=== PATIENT | male | born 1985 | race Caucasian/White ===

== ENCOUNTER 2016-07-27 02:29 | Emergency (ER) | payer OTHER, SELFPAY ==
[2016-07-27] MEDS ORDERED: Phenergan 25 MG INJ IV ONE (02:46)
[2016-07-27] MEDS ORDERED: Hydromorphone 1 mg/ml Ampule IV ONE (02:46)
[2016-07-27] MEDS ORDERED: Sodium Chloride 0.9% 1000 ML 1,000 ML IV STA ×2 (02:46→03:41)
--- NOTE | 2016-07-27 02:52 | ERPHSYRPT ---
- History of Present Illness Time Seen by Provider: 07/27/16 02:40 Historian: patient Exam Limitations: no limitations Patient Subjective Stated Complaint: "i have been vomiting andhaving diarrhea non-stop since 9 pm" Triage Nursing Assessment: aox3, breathign unlabored, skin pale warm dry, steady gait Physician History: ABOUT 5.5 HOURS AGO AFTER EATING A [employer] DINNER AT HOME PT STARTED WITH VOMITING, DIARRHEA AND GENERALIZED ACHES. RASH, DYSURIA, FEVER ALL DENIED. Allergies/Adverse Reactions: venom-honey bee [bee venom (honey bee)] Allergy (Severe, Verified 03/31/16 19:22 ) Swelling Home Medications: Citalopram Hydrobromide 20 mg* [ceLEXa 20 MG] 40 mg PO DAILY 12/21/15 [ History] Quetiapine Fumarate [Seroquel] 50 mg PO HS 03/28/16 [History] Antiinflammatory 03/31/16 [History] Hx Tetanus, Diphtheria Vaccination/Date Given: No Hx Influenza Vaccination/Date Given: No Hx Pneumococcal Vaccination/Date Given: No - Review of Systems Constitutional: No Fever Abdominal/Gastrointestinal: Vomiting, Diarrhea Musculoskeletal: Myalgias All Other Systems: Reviewed and Negative - Past Medical History Pertinent Past Medical History: Yes Neurological History: No Pertinent History ENT History: No Pertinent History Cardiac History: No Pertinent History Respiratory History: Asthma Endocrine Medical History: No Pertinent History Musculoskeletal History: No Pertinent History GI Medical History: Hernia History: No Pertinent History Psycho-Social History: Depression, Panic Disorder Male Reproductive Disorders: No Pertinent History Other Medical History: anger managment - Past Surgical History Past Surgical History: Yes Neuro Surgical History: No Pertinent History Cardiac: No Pertinent History Respiratory: No Pertinent History Gastrointestinal: Hernia Repair Genitourinary: No Pertinent History Musculoskeletal: No Pertinent History Male Surgical History: No Pertinent History Other Surgical History: T&A as a child - Social History Smoking Status: Former smoker How long have you smoked: 13 Exposure to second hand smoke: Yes Drug Use: none Patient Lives Alone: No Significant Family History: no pertinent family hx - Nursing Vital Signs Nursing Vital Signs: Initial Vital Signs Temperature 97.6 F Temperature Source Oral Pulse Rate 110 Respiratory Rate 22 Blood Pressure [Right Arm] 154/36 Pain Intensity 10 - Physical Exam General Appearance: alert, anxiety Eye Exam: PERRL/EOMI Ears, Nose, Throat Exam: TMs normal, moist mucous membranes, pharyngeal erythema Neck Exam: normal inspection Respiratory Exam: lungs clear Cardiovascular Exam: normal heart sounds Gastrointestinal/Abdomen Exam: soft, other (B.S. MODERATELY HYPERACTIVE AND NORMOTONIC) Back Exam: normal range of motion Extremity Exam: normal inspection, No pedal edema Neurologic Exam: alert, cooperative Skin Exam: warm, dry SpO2 Interpretation: normal SpO2: 99 Oxygen Delivery: Room Air - Course Nursing assessment & vital signs reviewed: Yes Ordered Tests: Active Orders 24 hr Category Date Time Status IV Insertion STAT Care 07/27/16 02:46 Active AMYLASE Stat Lab 07/27/16 02:55 Completed CBC W DIFF Stat Lab 07/27/16 02:55 Completed CMP Stat Lab 07/27/16 02:55 Completed LIPASE Stat Lab 07/27/16 02:55 Completed MAG [MAGNESIUM] Stat Lab 07/27/16 02:55 Completed UA W/ MICROSCOPIC Stat Lab 07/27/16 03:16 Completed Urine Triage Profile Stat Lab 07/27/16 03:16 Completed Medication Summary Generic Name Dose Route Start Last Admin Trade Name Freq PRN Reason Stop Dose Admin Sodium Chloride 1,000 mls @ 999 mls/hr 07/27/16 02:46 07/27/16 03:04 Sodium Chloride 0.9% 1000 Ml IV 07/27/16 03:46 999 mls/hr .Q1H1M STA Administration Magnesium Sulfate/Dextrose 100 mls @ 200 mls/hr 07/27/16 03:41 Magnesium 1 Gm / 100 Ml D5w IV 07/27/16 04:10 STAT ONE Sodium Chloride 1,000 mls @ 999 mls/hr 07/27/16 03:41 Sodium Chloride 0.9% 1000 Ml IV 07/27/16 04:41 .Q1H1M STA Discontinued Medications Generic Name Dose Route Start Last Admin Trade Name Freq PRN Reason Stop Dose Admin Hydromorphone HCl 1 mg 07/27/16 02:46 07/27/16 03:04 Hydromorphone 1 Mg/Ml Ampule IV 07/27/16 02:47 1 mg STAT ONE Administration Hydromorphone HCl Confirm 07/27/16 02:53 Hydromorphone 1 Mg/Ml Ampule Administered 07/27/16 02:54 Dose 1 mg .ROUTE .STK-MED ONE Hydromorphone HCl Confirm 07/27/16 03:01 Hydromorphone 1 Mg/Ml Ampule Administered 07/27/16 03:02 Dose 1 mg .ROUTE .STK-MED ONE Sodium Chloride Confirm 07/27/16 02:54 Sodium Chloride 0.9% 1000 Ml Administered 07/27/16 02:55 Dose 1,000 mls @ ud .ROUTE .STK-MED ONE Promethazine HCl 12.5 mg 07/27/16 02:46 07/27/16 03:04 Phenergan 25 Mg Inj IV 07/27/16 02:47 12.5 mg STAT ONE Administration Promethazine HCl Confirm 07/27/16 02:53 Phenergan 25 Mg Inj Administered 07/27/16 02:54 Dose 25 mg .ROUTE .STK-MED ONE Lab/Rad Data: Laboratory Result Diagrams 07/27/16 02:55 07/27/16 02:55 Laboratory Results 07/27/16 07/27/16 07/27/16 Range/Units 03:16 03:16 02:55 WBC (4.0-10.5) K/mm3 RBC (4.1-5.6) M/mm3 Hgb (12.5-18.0) gm/dl Hct (42-50) % MCV (78-100) fl MCH (26-32) pg MCHC (32-36) g/dl RDW (11.5-14.0) % Plt Count (150-450) K/mm3 MPV (6-9.5) fl Gran % (36.0-66.0) % Lymphocytes % (24.0-44.0) % Monocytes % (0.0-12.0) % Eosinophils % (0.00-5.0) % Basophils % (0.0-0.4) % Basophils # (0-0.4) Sodium (136-145) mEq/L Potassium (3.5-5.1) mEq/L Chloride (98-107) mEq/L Carbon Dioxide (21-32) mEq/L Anion Gap (5-15) MEQ/L BUN (9-20) mg/dL Creatinine (0.55-1.30) mg/dl Estimated GFR ML/MIN Glucose (70-110) MG/DL Calcium (8.5-10.1) mg/dL Magnesium 1.3 L (1.8-2.4) mg/dL Total Bilirubin (0.2-1.0) mg/dL AST (15-37) U/L ALT (12-78) U/L Alkaline Phosphatase (46-116) U/L Serum Total Protein (6.4-8.2) gm/dL Albumin (3.4-5.0) g/dL Amylase (25-115) U/L Lipase (73-393) U/L Ur Collection Type CLEAN CATCH Urine Color DARK YELLOW (YELLOW) Urine Appearance CLEAR (CLEAR) Urine pH 6.0 (5-6) Ur Specific [place] 1.020 (1.005-1.025) Urine Protein 30 (Negative) Urine Glucose (UA) 100 (NEGATIVE) mg/dL Urine Ketones TRACE (NEGATIVE) Urine Nitrite NEGATIVE (NEGATIVE) Urine Bilirubin SMALL (NEGATIVE) Urine Urobilinogen 0.2 (0-1) mg/dL Urine WBC (Auto) NEGATIVE (NEGATIVE) Urine RBC (Auto) NEGATIVE (0-5) Eric/ul Urine Microscopic WBC 0-2 (0-5) /HPF Ur Epithelial Cells FEW (FEW) /HPF Urine Bacteria FEW (NEGATIVE) /HPF Urine Mucus SLIGHT (NEGATIVE) /HPF Urine Opiates Level POS. (NEGATIVE) Ur Methadone NEG. (NEGATIVE) Urine Barbiturates NEG. (NEGATIVE) Ur Phencyclidine (PCP) NEG. (NEGATIVE) Urine Amphetamine NEG. (NEGATIVE) U Benzodiazepine Level POS. (NEGATIVE) Urine Cocaine NEG. (NEGATIVE) Urine Marijuana (THC) POS. (NEGATIVE) Specimen Received [id number] 07/27/16 07/27/16 Range/Units 02:55 02:55 WBC 13.3 H (4.0-10.5) K/mm3 RBC 5.51 (4.1-5.6) M/mm3 Hgb 16.5 (12.5-18.0) gm/dl Hct 47.9 (42-50) % MCV 86.9 (78-100) fl MCH 29.9 (26-32) pg MCHC 34.4 (32-36) g/dl RDW 14.4 H (11.5-14.0) % Plt Count 279 (150-450) K/mm3 MPV 10.1 H (6-9.5) fl Gran % 85.0 H (36.0-66.0) % Lymphocytes % 5.9 L (24.0-44.0) % Monocytes % 7.6 (0.0-12.0) % Eosinophils % 1.3 (0.00-5.0) % Basophils % 0.2 (0.0-0.4) % Basophils # 0.02 (0-0.4) Sodium 143 (136-145) mEq/L Potassium 5.1 (3.5-5.1) mEq/L Chloride 103 (98-107) mEq/L Carbon Dioxide 25.8 (21-32) mEq/L Anion Gap 18.8 H (5-15) MEQ/L BUN 17 (9-20) mg/dL Creatinine 1.54 H (0.55-1.30) mg/dl Estimated GFR 57 ML/MIN Glucose 155 H (70-110) MG/DL Calcium 9.8 (8.5-10.1) mg/dL Magnesium (1.8-2.4) mg/dL Total Bilirubin 0.5 (0.2-1.0) mg/dL AST 69 H (15-37) U/L ALT 82 H (12-78) U/L Alkaline Phosphatase 104 (46-116) U/L Serum Total Protein 8.6 H (6.4-8.2) gm/dL Albumin 4.9 (3.4-5.0) g/dL Amylase 41 (25-115) U/L Lipase 72 L (73-393) U/L Ur Collection Type Urine Color (YELLOW) Urine Appearance (CLEAR) Urine pH (5-6) Ur Specific [place] (1.005-1.025) Urine Protein (Negative) Urine Glucose (UA) (NEGATIVE) mg/dL Urine Ketones (NEGATIVE) Urine Nitrite (NEGATIVE) Urine Bilirubin (NEGATIVE) Urine Urobilinogen (0-1) mg/dL Urine WBC (Auto) (NEGATIVE) Urine RBC (Auto) (0-5) Eric/ul Urine Microscopic WBC (0-5) /HPF Ur Epithelial Cells (FEW) /HPF Urine Bacteria (NEGATIVE) /HPF Urine Mucus (NEGATIVE) /HPF Urine Opiates Level (NEGATIVE) Ur Methadone (NEGATIVE) Urine Barbiturates (NEGATIVE) Ur Phencyclidine (PCP) (NEGATIVE) Urine Amphetamine (NEGATIVE) U Benzodiazepine Level (NEGATIVE) Urine Cocaine (NEGATIVE) Urine Marijuana (THC) (NEGATIVE) Specimen Received - Departure Time of Disposition: 03:47 Departure Disposition: Home Clinical Impression: VOMITING, DIARRHEA, HYPOMAGNESEMIA Condition: Fair Critical Care Time: No Instructions: Diarrhea and Traveler's Diarrhea -- Adult, Vomiting -- Adult Additional Instructions: FOLLOW UP WITH PRIVATE DOCTOR TOMORROW. Prescriptions: Ondansetron [Zofran Odt] 4 mg PO Q4H PRN PRN #14 tab.rapdis PRN Reason: Nausea/Vomiting
[2016-07-27] MEDS ORDERED: Phenergan 25 MG INJ ONE (02:53)
[2016-07-27] MEDS ORDERED: Hydromorphone 1 mg/ml Ampule ONE ×2 (02:53→03:01)
[2016-07-27] MEDS ORDERED: Sodium Chloride 0.9% 1000 ML 1,000 ML ONE ×2 (02:54→03:48)
[2016-07-27 02:58] LABS: BASOPHIL % 0.2 % (0.0-0.4); Eosinophil % 1.3 % (0.00-5.0); Lymphocytes % 5.9 % (24.0-44.0); Mean Cell Volume 86.9 fl (78-100); Mean Corpuscular Hemoglobin 29.9 pg (26-32); Mean Platelet Volume 10.1 fl (6-9.5); Monocytes % 7.6 % (0.0-12.0); Platelet Count 279 K/mm3 (150-450); Red Blood Count 5.51 M/mm3 (4.1-5.6); Red Cell Distribution Width 14.4 % (11.5-14.0); White Blood Count 13.3 K/mm3 (4.0-10.5)
[2016-07-27 03:19] LABS: ALBUMIN 4.9 g/dL (3.4-5.0); ANION GAP 18.8 MEQ/L (5-15); BILIRUBIN,TOTAL 0.5 mg/dL (0.2-1.0); Carbon Dioxide 25.8 mEq/L (21-32); Potassium 5.1 mEq/L (3.5-5.1); Total Protein 8.6 gm/dL (6.4-8.2)
[2016-07-27 03:27] LABS: COMPLETE URINE MICROSCOPIC? YES; Collection Type CLEAN CATCH; Mucus SLIGHT /HPF (NEGATIVE)
[2016-07-27 03:28] LABS: Bacteria FEW /HPF (NEGATIVE); Epithelial Cells FEW /HPF (FEW); WBC 0-2 /HPF (0-5)
[2016-07-27] MEDS ORDERED: Magnesium 1 Gm / 100 Ml D5W*** 100 ML IV ONE ×2 (03:41→03:48)
[2016-07-27 04:45] VITALS: BP 146/91; PULSE 85; O2SAT 100
== END 2016-07-27 04:47 | disposition home or self-care (01) ==
LOC: ED 02:29
DX: R11.10 Vomiting, unspecified (principal); R19.7 Diarrhea, unspecified; E83.42 Hypomagnesemia; M79.1 Myalgia
CPT/HCPCS: 36000; 36415; 80053; 80307; 81000; 82150; 83690; 83735; 85025; 96360; 96361; 96365; 96374; 96375; 99284; J1170; J2550; J3475

== ENCOUNTER 2016-10-12 16:18 | Emergency (ER) | payer OTHER, SELFPAY ==
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
[2016-10-12] MEDS ORDERED: Adacel Vial IM ONE ×2 (17:10→17:16)
[2016-10-12] MEDS ORDERED: TORAdol 30 mg Injection IM ONE (17:11)
[2016-10-12 17:15] VITALS: BP 142/81; PULSE 80
[2016-10-12] MEDS ORDERED: TORAdol 30 mg Injection ONE (17:16)
[2016-10-12] MEDS ORDERED: BACIGUENT PACKET ONE (17:29)
[2016-10-12 17:30] VITALS: O2SAT 100
== END 2016-10-12 17:36 | disposition home or self-care (01) ==
LOC: ED 16:18
DX: T24.201A Burn of second degree of unspecified site of right lower limb, except ankle and foot, initial encounter (principal); X16.XXXA Contact with hot heating appliances, radiators and pipes, initial encounter
CPT/HCPCS: 90471; 90715; 96372; 99283; J1885; A9270-GY

== ENCOUNTER 2017-06-11 11:52 | Emergency (ER) | payer OTHER, SELFPAY ==
[2017-06-11] MEDS ORDERED: TORAdol 30 mg Injection IM ONE (12:14)
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
[2017-06-11] MEDS ORDERED: TORAdol 30 mg Injection ONE (12:34)
[2017-06-11] MEDS ORDERED: XYLOCAINE 1% HCL 20 ML MDV IJ ONE (12:48)
[2017-06-11] MEDS ORDERED: XYLOCAINE 1% HCL 20 ML MDV ONE (12:57)
[2017-06-11 13:52] VITALS: BP 128/98; PULSE 88; O2SAT 100
--- NOTE | 2017-06-11 18:46 | XRAY ---
Indication: Post reduction. Comparison: Taken earlier in the day. 3 views of the right hand demonstrate successful reduction of the fourth PIP dislocation with residual soft tissue swelling. No other bony, articular or soft tissue abnormalities.
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
== END 2017-06-11 14:02 | disposition home or self-care (01) ==
LOC: ED 11:52
PROC: 0RSWXZZ Reposition Right Finger Phalangeal Joint, External Approach (ICD-10-PCS; principal; 2017-06-11)
DX: S63.284A Dislocation of proximal interphalangeal joint of right ring finger, initial encounter (principal); W23.0XXA Caught, crushed, jammed, or pinched between moving objects, initial encounter
CPT/HCPCS: 26770; 73130; 96372; 99284; J1885

== ENCOUNTER 2019-05-28 12:43 | Emergency (ER) | payer MEDICAID, OTHER ==
--- NOTE | 2019-05-28 12:59 | ERPHSYRPT ---
- History of Present Illness Time Seen by Provider: 05/28/19 12:59 Historian: patient Exam Limitations: no limitations Physician History: 33 y/o white male pt presents with bilat groin pain and medication refill. pt underwent bilat ing hernia repair with mesh in 2016 per patient report. he is concerned about mesh moving and pain it is causing. pt is out of his meds including seroquel and norco. dr. rodriguez is his primary doctor. Timing/Duration: other (chronic) Activities at Onset: none Quality: sharpness (bilat groins) Pain Radiation: groin (bilat) Severity of Pain-Max: mild Severity of Pain-Current: mild Modifying Factors: Improves With: movement (worsens) Associated Symptoms: denies symptoms Previous symptoms: same symptoms as today Allergies/Adverse Reactions: venom-honey bee [bee venom (honey bee)] Allergy (Severe, Verified 05/28/19 13:06 ) Swelling Home Medications: No Reportable Medications [No Reported Medications] 05/28/19 [History] Hx Tetanus, Diphtheria Vaccination/Date Given: No Hx Influenza Vaccination/Date Given: No Hx Pneumococcal Vaccination/Date Given: No - Review of Systems Constitutional: No Symptoms Eyes: No Symptoms Ears, Nose, & Throat: No Symptoms Respiratory: No Symptoms Cardiac: No Symptoms Abdominal/Gastrointestinal: No Symptoms Genitourinary Symptoms: Other (bilat groin pain) Musculoskeletal: No Symptoms Skin: No Symptoms Neurological: No Symptoms Psychological: No Symptoms Endocrine: No Symptoms Hematologic/Lymphatic: No Symptoms Immunological/Allergic: No Symptoms All Other Systems: Reviewed and Negative - Past Medical History Pertinent Past Medical History: Yes Neurological History: No Pertinent History ENT History: No Pertinent History Cardiac History: No Pertinent History Respiratory History: Asthma Endocrine Medical History: No Pertinent History Musculoskeletal History: No Pertinent History GI Medical History: Hernia History: No Pertinent History Psycho-Social History: Depression, Panic Disorder Male Reproductive Disorders: No Pertinent History Other Medical History: anger managment - Past Surgical History Past Surgical History: Yes Neuro Surgical History: No Pertinent History Cardiac: No Pertinent History Respiratory: No Pertinent History Gastrointestinal: Hernia Repair Genitourinary: No Pertinent History Musculoskeletal: No Pertinent History Male Surgical History: No Pertinent History Other Surgical History: T&A as a child - Social History Smoking Status: Former smoker How long have you smoked: 13 Exposure to second hand smoke: Yes Drug Use: none Patient Lives Alone: No Significant Family History: no pertinent family hx - Nursing Vital Signs Nursing Vital Signs: Initial Vital Signs Temperature 97.2 F 05/28/19 12:55 Pulse Rate 95 H 05/28/19 12:55 Respiratory Rate 16 05/28/19 12:55 Blood Pressure 129/79 05/28/19 12:55 O2 Sat by Pulse Oximetry 100 05/28/19 12:55 Pain Scale Pain Intensity 9 - Physical Exam General Appearance: no apparent distress, alert, anxiety Eye Exam: PERRL/EOMI, eyes nml inspection Ears, Nose, Throat Exam: normal ENT inspection, moist mucous membranes Neck Exam: normal inspection, non-tender, supple, full range of motion Respiratory Exam: No chest tenderness Gastrointestinal/Abdomen Exam: soft, tenderness (bilat groin; no evidence of infection and no evidence of recurrent ing hernias) Male Genitalia Exam: normal genitalia, No hernia Rectal Exam: not done Neurologic Exam: alert, oriented x 3, cooperative, trouble clerk II-XII nml as tested, normal mood/affect, nml cerebellar function, nml station & gait Skin Exam: normal color, warm, dry Lymphatic Exam: No adenopathy O2 Delivery: Room Air - Course Nursing assessment & vital signs reviewed: Yes - Progress Progress: unchanged Counseled pt/family regarding: diagnosis, need for follow-up - Departure Departure Disposition: Home Clinical Impression: Bilateral groin pain, Medication refill Condition: Stable Critical Care Time: No Referrals: DELBERT RODRIGUEZ MD [Primary Care Provider] - Additional Instructions: follow up with dr. rodriguez on 06/01/2019 at 1445 for refill of your medications. follow up with dr. odonnell, general surgeon, 06/04/2019 at 0940 [facility] for evaluation of your bilateral groin pain
[2019-05-28 13:06] VITALS: BP 129/79; PULSE 95; O2SAT 100
== END 2019-05-28 14:06 | disposition home or self-care (01) ==
LOC: ED 12:43
DX: R10.32 Left lower quadrant pain (principal); R10.31 Right lower quadrant pain
CPT/HCPCS: 99283

== ENCOUNTER 2019-10-13 20:02 | Emergency (ER) | payer MEDICAID ==
--- NOTE | 2019-10-13 21:30 | ERPHSYRPT ---
- History of Present Illness Time Seen by Provider: 10/13/19 21:27 Source: patient, family Exam Limitations: no limitations Patient Subjective Stated Complaint: pt states that he was on the roof, pt states that he fell off a one story house, pt states that he hit his nose on the ladder on the way down, pt states that he hit his rt ribs also Triage Nursing Assessment: pt ambulated into the er, pt is axo x 3, pt is bleeding from nose, pt states pain 9/10 to nose, pt c/o pain with breathing, pt has clear lung sound posterior and anterior, pupils 3 mm and PERRL, strong pulse ABEL, vitals wnl Physician History: pt fell from roof striking ladder with right ribs and nose /head with brief LOC ; Occurred: just prior to arrival Severity: moderate Head Injury Location: frontal Method of Injury: fell Loss of Consciousness: brief (seconds) Associated Symptoms: denies symptoms Allergies/Adverse Reactions: venom-honey bee [bee venom (honey bee)] Allergy (Severe, Verified 05/28/19 13:06 ) Swelling Home Medications: Citalopram Hydrobromide [Celexa] 40 mg PO DAILY 10/13/19 [History] Hydrocodone Bit/Acetaminophen [[place] 7.5-325 Tablet] 1 each PO Q6H PRN PRN 10/12 [History] Quetiapine Fumarate [Seroquel] 200 mg PO BID 10/13/19 [History] Hx Tetanus, Diphtheria Vaccination/Date Given: Yes Hx Influenza Vaccination/Date Given: Yes Hx Pneumococcal Vaccination/Date Given: No Travel Risk - International Travel Have you traveled outside of the country in past 3 weeks: No (N) If Yes, where;: N - Coronavirus Screening Are you exhibiting any of the following symptoms?: No Close contact with a COVID-19 positive Pt in past 14-21 Days: No - Past Medical History Pertinent Past Medical History: Yes Neurological History: No Pertinent History ENT History: No Pertinent History Cardiac History: No Pertinent History Respiratory History: Asthma Endocrine Medical History: No Pertinent History Musculoskeletal History: No Pertinent History GI Medical History: Hernia History: No Pertinent History Psycho-Social History: Depression, Panic Disorder Male Reproductive Disorders: No Pertinent History Other Medical History: anger managment - Past Surgical History Past Surgical History: Yes Neuro Surgical History: No Pertinent History Cardiac: No Pertinent History Respiratory: No Pertinent History Gastrointestinal: Hernia Repair Genitourinary: No Pertinent History Musculoskeletal: No Pertinent History Male Surgical History: No Pertinent History Other Surgical History: T&A as a child - Social History Smoking Status: Current every day smoker How long have you smoked: 13 Exposure to second hand smoke: Yes Drug Use: none Patient Lives Alone: No Significant Family History: no pertinent family hx - Nursing Vital Signs Nursing Vital Signs: Initial Vital Signs Temperature 97.8 F 10/13/19 20:22 Pulse Rate 109 H 10/13/19 20:22 Respiratory Rate 16 10/13/19 20:22 Blood Pressure 132/70 10/13/19 20:22 O2 Sat by Pulse Oximetry 98 10/13/19 20:22 Pain Scale Pain Intensity 9 - Physical Exam SpO2: 98 - Radiology Exams Chest X-ray Interpretation: Reviewed by me, Non-displaced Fracture (suspected right lower ribs) Ordered Tests: Active Orders 24 hr Category Date Time Status CERVICAL SPINE WO CONTRAST [CT] Stat Exams 10/13/19 21:25 Taken CHEST 2 VIEWS (PA AND LAT) Stat Exams 10/13/19 21:26 Taken HEAD WITHOUT CONTRAST [CT] Stat Exams 10/13/19 21:25 Taken CBC W DIFF Stat Lab 10/13/19 22:07 Completed CMP Stat Lab 10/13/19 22:07 Completed CULTURE,URINE Stat Lab 10/13/19 22:49 Received UA W/RFX UR CULTURE Stat Lab 10/13/19 22:49 Completed Medication Summary Discontinued Medications Generic Name Dose Route Start Last Admin Trade Name Jonaq PRN Reason Stop Dose Admin Hydrocodone Bitart/Acetaminophen 2 tab 10/13/19 22:33 10/13/19 22:44 [place] 5/325 Mg PO 10/13/19 22:34 2 tab STAT ONE Administration Hydrocodone Bitart/Acetaminophen Confirm 10/13/19 22:44 [place] 5/325 Mg Administered 10/13/19 22:45 Dose 1 tab .ROUTE .STK-MED ONE Hydrocodone Bitart/Acetaminophen Confirm 10/13/19 22:45 [place] 5/325 Mg Administered 10/13/19 22:46 Dose 1 tab .ROUTE .STK-MED ONE Lab/Rad Data: Laboratory Result Diagrams 10/13/19 22:07 10/13/19 22:07 Laboratory Results 06/10/13/19 10/13/19 Range/Units 22:49 22:07 22:07 WBC 12.0 H (4.0-10.5) K/mm3 RBC 5.32 (4.1-5.6) M/mm3 Hgb 15.8 (12.5-18.0) gm/dl Hct 46.3 (42-50) % MCV 87.0 (78-100) fl MCH 29.7 (26-32) pg MCHC 34.1 (32-36) g/dl RDW 14.2 H (11.5-14.0) % Plt Count 303 (150-450) K/mm3 MPV 10.1 (7.5-11.0) fl Gran % 74.3 H (36.0-66.0) % Eos # (Auto) 0.06 (0-0.5) Absolute Lymphs (auto) 2.02 (1.0-4.6) Absolute Monos (auto) 0.98 (0.0-1.3) Lymphocytes % 16.8 L (24.0-44.0) % Monocytes % 8.2 (0.0-12.0) % Eosinophils % 0.5 (0.00-5.0) % Basophils % 0.2 (0.0-0.4) % Absolute Granulocytes 8.94 H (1.4-6.9) Basophils # 0.02 (0-0.4) Sodium 139 (137-145) mmol/L Potassium 4.2 (3.5-5.1) mmol/L Chloride 100 (98-107) mmol/L Carbon Dioxide 30 (22-30) mmol/L Anion Gap 12.7 (5-15) MEQ/L BUN 13 (9-20) mg/dL Creatinine 1.12 (0.66-1.25) mg/dL Estimated GFR > 60.0 ML/MIN Glucose 82 (74-106) mg/dL Calcium 9.7 (8.4-10.2) mg/dL Total Bilirubin 0.60 (0.2-1.3) mg/dL AST 33 (17-59) U/L ALT 19 (0-50) U/L Alkaline Phosphatase 82 (38-126) U/L Serum Total Protein 8.2 (6.3-8.2) g/dL Albumin 4.6 (3.5-5.0) g/dL Urine Color YELLOW (YELLOW) Urine Appearance SLIGHTLY CLOUDY (CLEAR) Urine pH 5.0 (5-6) Ur Specific [place] 1.029 (1.005-1.025) Urine Protein NEGATIVE (Negative) Urine Ketones NEGATIVE (NEGATIVE) Urine Blood NEGATIVE (0-5) Eric/ul Urine Nitrite NEGATIVE (NEGATIVE) Urine Bilirubin NEGATIVE (NEGATIVE) Urine Urobilinogen NEGATIVE (0-1) mg/dL Ur Leukocyte Esterase TRACE (NEGATIVE) Urine WBC (Auto) 11-15 (0-5) /HPF Urine RBC (Auto) 3-5 (0-2) /HPF U Epithel Cells (Auto) NONE (FEW) /HPF Urine Bacteria (Auto) RARE (NEGATIVE) /HPF Unidentified Crystals 2-5 (NEGATIVE) /HPF Urine Mucus (Auto) MANY (NEGATIVE) /HPF Urine Culture Reflexed YES (NO) Urine Glucose NEGATIVE (NEGATIVE) mg/dL - Progress Progress: improved, re-examined Counseled pt/family regarding: lab results, diagnosis, need for follow-up, rad results - Departure Departure Disposition: Home Clinical Impression: righht rib nondisplaced fractures, Concussion, Nasal fracture, heamturia /uti Condition: Good Critical Care Time: No Referrals: DELBERT HOOD MD [Primary Care Provider] - Instructions: Preventing Falls, Rib Fracture (DC), Concussion, Adult (DC), Urinary Tract Infection, Adult (DC), Blood in the Urine (Hematuria), Adult (DC) , Nose Fracture (DC) Additional Instructions: followup with your DrAngelika to recheck urine and for concussion, rib fractures, and probable nasal fracture ( may need ENT referral) and return meantime if not improving or further concerns Prescriptions: Cephalexin Mh 500 mg [Keflex 500 mg] 500 mg PO TID #30 capsule
[2019-10-13 22:10] LABS: Absolute Neutrophil Ct (ANC) 8.94 (1.4-6.9); BASOPHIL % 0.2 % (0.0-0.4); Basophil (Absolute #) 0.02 (0-0.4); Eosinophil % 0.5 % (0.00-5.0); Eosinophil (Absolute #) 0.06 (0-0.5); Hematocrit 46.3 % (42-50); Hemoglobin 15.8 gm/dl (12.5-18.0); Lymphocyte (Absolute #) 2.02 (1.0-4.6); Lymphocytes % 16.8 % (24.0-44.0); Mean Corpuscular Hemoglobin 29.7 pg (26-32); Mean Corpuscular Hgb Concent. 34.1 g/dl (32-36); Mean Platelet Volume 10.1 fl (7.5-11.0); Monocyte (Absolute #) 0.98 (0.0-1.3); Monocytes % 8.2 % (0.0-12.0); Neutrophil % 74.3 % (36.0-66.0); Platelet Count 303 K/mm3 (150-450); Red Blood Count 5.32 M/mm3 (4.1-5.6); Red Cell Distribution Width 14.2 % (11.5-14.0)
[2019-10-13 22:21] LABS: ALBUMIN 4.6 g/dL (3.5-5.0); ALKALINE PHOSPHATASE 82 U/L (38-126); ANION GAP 12.7 MEQ/L (5-15); BLOOD UREA NITROGEN 13 mg/dL (9-20); CHLORIDE 100 mmol/L (98-107); Calcium 9.7 mg/dL (8.4-10.2); Carbon Dioxide 30 mmol/L (22-30); Creatinine 1 1.12 mg/dL (0.66-1.25); Glucose 82 mg/dL (74-106); Potassium 4.2 mmol/L (3.5-5.1); SGOT/AST 33 U/L (17-59); SGPT/ALT 19 U/L (0-50); SODIUM 139 mmol/L (137-145); Total Protein 8.2 g/dL (6.3-8.2)
[2019-10-13] MEDS ORDERED: NORCO 5/325 MG PO ONE (22:33)
[2019-10-13 22:39] VITALS: O2SAT 98
[2019-10-13] MEDS ORDERED: NORCO 5/325 MG ONE ×2 (22:44→22:45)
[2019-10-13 23:00] LABS: Appearance SLIGHTLY CLOUDY (CLEAR); Bacteria RARE /HPF (NEGATIVE); Bilirubin NEGATIVE (NEGATIVE); Blood NEGATIVE Ery/ul (0-5); Glucose NEGATIVE (NEGATIVE); Ketones NEGATIVE (NEGATIVE); Leukocyte Esterase TRACE (NEGATIVE); Mucus MANY /HPF (NEGATIVE); Nitrite NEGATIVE (NEGATIVE); Protein,Urine Dip NEGATIVE (Negative); Specific Gravity 1.029 (1.005-1.025); Urobilinogen NEGATIVE mg/dL (0-1)
[2019-10-13 23:41] VITALS: BP 124/72; PULSE 111
--- NOTE | 2019-10-14 06:42 | XRAY ---
Indication: Right-sided chest pain following fall from roof. Comparison: May 19, 2015. 2 view chest again hyperinflated and clear. Heart is not enlarged. Bony thorax grossly intact. Impression: Nonacute hyperinflated chest.
--- NOTE | 2019-10-14 06:44 | XRAY ---
Indication: Head injury following fall from roof. Multiple contiguous axial images obtained through the head without contrast. Comparison: None Normal appearing brain parenchyma, ventricles, and bony calvarium. Visualized paranasal sinuses and mastoid air cells are clear. Impression: Normal CT head without contrast exam. Comment: Preliminary interpretation was made by [facility]. No critical discrepancy.
--- NOTE | 2019-10-14 06:46 | XRAY ---
Indication: Neck injury following fall from roof. Multiple contiguous axial images obtained through the cervical spine. Sagittal and coronal reformatted images obtained. Comparison: None Axial images negative for acute fracture, suspicious bony lesions, or spinal canal stenosis. Minimal C5-C6 broad-based disc bulge. Sagittal and coronal reformatted images demonstrates normal alignment with minimal C5-C6 disc space narrowing. No acute fracture, subluxation, or jumped facet. Normal appearing craniocervical junction. Visualized noncontrasted soft tissues including lung apices are unremarkable. Impression: 1. C5-C6 broad-based disc bulge. Outpatient MRI may yield further information. 2. Negative acute fracture/subluxation. Comment: Preliminary interpretation was made by C. No critical discrepancy.
== END 2019-10-13 23:40 | disposition home or self-care (01) ==
LOC: ED 20:02
DX: S22.31XA Fracture of one rib, right side, initial encounter for closed fracture (principal); W13.2XXA Fall from, out of or through roof, initial encounter; Y93.89 Activity, other specified; Y92.89 Other specified places as the place of occurrence of the external cause
CPT/HCPCS: 36415; 70450; 71046; 72125; 80053; 81001; 85025; 87086; 99284; A9270-GY